=== PATIENT | male | born 1960 | race Caucasian/White ===

== ENCOUNTER → 2019-06-27 | Outpatient (CLI) | payer OTHER ==
[~2019-06-27] MED LIST: CURCUMIN1 GM PO; MULTI-VITAMIN1 EACH PO; SAW PALMETTO160 MG PO; SELENIUM200 MC2 PO; VITAMIN C1000 MG PO; VITAMIN E400 UNI1 PO
--- NOTE | 2019-07-03 11:25 | Polysomnography ---
DATE OF STUDY: REFERRING PHYSICIAN: STUDY: Polysomnography report. HISTORY OF PRESENT ILLNESS: The patient reports snoring and intermittent apnea at night. The patient has difficulty initiating and maintaining sleep. The patient has daytime somnolence and fatigue. INTERPRETATION: The patient had a home sleep study with 2-lead EEG monitoring, nasal pressure monitoring, nasal oral airflow by thermocouple, and arterial saturation. The patient also had an impedance device to measure chest wall movements. The patient slept for 515.5 minutes out of 599.5 minutes. The sleep efficiency was 86%. There were a total of 57 clear obstructive apneas as well as 163 hypopnea events. AHI index was 25.6 events per hour. IMPRESSION: Moderate obstructive sleep apnea. RECOMMENDATIONS: 1. Auto PAP at home ranging from 4 to 20 cm of water pressure. 2. Avoid alcohol or sedatives prior to retiring at night. 3. Achieve and maintain an ideal body weight. 4. Followup in 3 months to ensure efficacy and compliance with CPAP. Colton Bwoen MD [facility] /[id number]
== END ==
LOC: SLEEP 19:07
PROVIDERS: ATTEND Internal Medicine Cardiovascular Disease
DX: R06.83 Snoring (principal); R00.2 Palpitations; R06.02 Shortness of breath
CPT/HCPCS: 95806